=== PATIENT | female | born 1960 | race Hispanic/Latino ===

== ENCOUNTER 2020-02-08 12:10 | Outpatient (CLI) | payer BC ==
--- NOTE | 2020-02-08 13:17 | RAD ---
LEFT TIBIA AND FIBULA: DATE: 02/08/2020 INDICATION: Left leg pain. FINDINGS: No evidence of fracture. No osseous abnormality identified. IMPRESSION: No acute findings. POS: OFF
== END 2020-02-08 12:11 | disposition home or self-care (01) ==
LOC: RAD 12:10
PROVIDERS: ATTEND Physician Assistant
DX: M79.605 Pain in left leg (principal)

== ENCOUNTER 2023-09-28 19:42 | Inpatient (IN) | payer BC ==
[~2023-09-28 19:42] MED LIST: Iopamidol-370 76% 500 ML MDV (1 ML CHARGE) ONE
[2023-09-28 20:43] LABS: #Basophils 0.05 10x3/uL (0.0-0.2); %Basophils 0.8 % (0.0-1.0); %Eosinophils 1.5 % (0.0-10.0); %Lymphocytes 36.8 % (21.0-51.0); %Monocytes 6.9 % (0.0-10.0); %Neutrophils 53.5 % (42.0-75.0); Hematocrit 38.1 % (36.0-47.0); Hemoglobin 12.3 g/dL (12.0-16.0); Mean Corpuscular HGB CONC 32.3 g/dL (32.0-36.0); Mean Corpuscular Hemoglobin 31.1 pg (27.0-31.0); Mean Corpuscular Volume 96.5 fL (78.0-98.0); Mean Platelet Volume 11.5 fL (7.4-10.4); Platelet Count 217 10x3/uL (130-400); RBC Distribution Width 13.1 % (11.5-14.5); Red Blood Cell (RBC) Count 3.95 mill/uL (4.20-5.40)
[2023-09-28] MEDS ORDERED: Atropine Sulfate 1 mg/10 ml Syringe ONE ×2 (20:55→21:17)
[2023-09-28 21:06] LABS: Globulin 3.4 g/dL (2.4-3.5)
[2023-09-28 21:10] LABS: ALT (SGPT) 101 U/L (8-55); AST (SGOT) 116 U/L (5-34); Albumin 3.6 g/dL (3.4-4.8); Alkaline Phosphatase 114 U/L (40-110); Anion Gap 12 mmol/L (10-20); BUN (Urea Nitrogen) 21 mg/dL (9.8-20.1); Bilirubin, Total 0.3 mg/dL (0.2-1.2); Calc. Creatinine Clearance 0 mL/min (70-130); Calcium 9.2 mg/dL (7.8-10.44); Carbon Dioxide 25 mmol/L (23-31); Chloride 110 mmol/L (98-107); Estimated GFR 79; Glucose 107 mg/dL (80-115); Potassium 4.3 mmol/L (3.5-5.1); Sodium 143 mmol/L (136-145)
[2023-09-28 21:12] LABS: Troponin I Less than 0.010 ng/mL (< 0.028)
[2023-09-28] MEDS ORDERED: hydrALAZINE 20 MG/ML VIAL ONE (21:17)
[2023-09-28] MEDS ORDERED: Morphine 4 MG/ML VIAL ONE (21:17)
[2023-09-28 21:34] LABS: Magnesium 2.1 mg/dL (1.6-2.6)
[2023-09-28 21:36] LABS: PTT 26.2 sec (22.9-36.1); Prothrombin Time 12.8 sec (12.0-14.7)
[2023-09-29] MEDS ORDERED: hydrALAZINE 20 MG/ML VIAL SLOW IVP PRN (01:44)
[2023-09-29] MEDS ORDERED: Electrolyte Replacement Protocol 1 EACH FS PRN (02:19)
[2023-09-29 02:21] LABS: #Basophils 0.04 10x3/uL (0.0-0.2); %Basophils 0.6 % (0.0-1.0); %Eosinophils 1.8 % (0.0-10.0); %Lymphocytes 33.3 % (21.0-51.0); %Monocytes 7.3 % (0.0-10.0); %Neutrophils 56.7 % (42.0-75.0); Hematocrit 36.2 % (36.0-47.0); Hemoglobin 11.7 g/dL (12.0-16.0); Mean Corpuscular HGB CONC 32.3 g/dL (32.0-36.0); Mean Corpuscular Hemoglobin 30.8 pg (27.0-31.0); Mean Corpuscular Volume 95.3 fL (78.0-98.0); Mean Platelet Volume 11.4 fL (7.4-10.4); Platelet Count 210 10x3/uL (130-400); RBC Distribution Width 13.2 % (11.5-14.5)
[2023-09-29] MEDS: Atropine Sulfate 1 mg/10 ml Syringe ONE (02:26)
[2023-09-29 02:42] VITALS: BMI 37.7
[2023-09-29 02:42] LABS: Troponin I 0.012 ng/mL (< 0.028)
[2023-09-29] MEDS: Atropine Sulfate 1 mg/10 ml Syringe IVP SCH (02:55)
[2023-09-29 04:30] LABS: Anion Gap 16 mmol/L (10-20); BUN (Urea Nitrogen) 19 mg/dL (9.8-20.1); Calc. Creatinine Clearance 110 mL/min (70-130); Calcium 8.9 mg/dL (7.8-10.44); Carbon Dioxide 19 mmol/L (23-31); Chloride 112 mmol/L (98-107); Estimated GFR 89; Glucose 106 mg/dL (80-115); Magnesium 2.1 mg/dL (1.6-2.6); Potassium 3.8 mmol/L (3.5-5.1); Sodium 143 mmol/L (136-145)
[2023-09-29] MEDS: DOBUTamine 500 mg/250 ml 250 ML IVPB SCH (04:51)
[2023-09-29] MEDS: Ondansetron PF 4 MG/2 ML Vial IVP PRN (05:41)
[2023-09-29 08:13] LABS: Troponin I Less than 0.010 ng/mL (< 0.028)
[2023-09-29 08:28] LABS: HBCM Index 0.07 S/CO (0-0.79); HBsAg Index 0.27 S/CO (0-0.99); Hep A IgM AB NONREACTIVE (NonReactive); Hep A IgM S/CO 0.25 S/CO (0-0.79); Hep B Surf Ag NONREACTIVE S/CO (NonReactive); Hep C IgG Ab NONREACTIVE S/CO (NonReactive); Hepatitis B Core IgM Abs NONREACTIVE S/CO (NonReactive)
[2023-09-29 08:53] LABS: ALT (SGPT) 81 U/L (8-55); AST (SGOT) 61 U/L (5-34); Albumin 3.6 g/dL (3.4-4.8); Alkaline Phosphatase 101 U/L (40-110); Bilirubin, Direct 0.2 mg/dL (0.1-0.3); Bilirubin, Total 0.6 mg/dL (0.2-1.2); Protein, Total 6.5 g/dL (5.8-8.1)
[2023-09-29 08:59] LABS: Acetaminophen Less than 10 mcg/mL (10.0-30.0); Alcohol Less than 10.0 mg/dL (Less than 10); Salicylate Less than 8.0 mg/dL (15.0-30.0)
[2023-09-29] MEDS ORDERED: NIFEdipine XL 60 MG ER.TAB PO SCH (09:00)
[2023-09-29] MEDS: Lisinopril 20 MG TAB PO SCH (09:45)
[2023-09-29] MEDS: Famotidine/PF 20 mg/2ml Vial SLOW IVP SCH (09:46)
[2023-09-29] MEDS ORDERED: CEFAZOLIN 1 GM VIAL ONE (12:41)
[2023-09-29] MEDS ORDERED: Gentamicin 80 MG/2 ML VIAL ONE (12:41)
[2023-09-29] MEDS ORDERED: CEFAZOLIN 2 GM VIAL ONE (12:41)
[2023-09-29] MEDS: ALPRAZolam 0.25 MG TAB PO SCH (12:55)
[2023-09-29] MEDS ORDERED: Midazolam HCl 2 mg/2 ml Vial ONE (13:51)
[2023-09-29] MEDS: Acetaminophen 325 MG TAB PO PRN (17:39)
[2023-09-30 04:16] LABS: #Basophils Less than 0.03 10x3/uL (0.0-0.2); %Basophils 0.3 % (0.0-1.0); %Eosinophils 1.3 % (0.0-10.0); %Lymphocytes 23.5 % (21.0-51.0); %Monocytes 9.2 % (0.0-10.0); %Neutrophils 65.5 % (42.0-75.0); Hematocrit 35.5 % (36.0-47.0); Hemoglobin 11.5 g/dL (12.0-16.0); Mean Corpuscular HGB CONC 32.4 g/dL (32.0-36.0); Mean Corpuscular Hemoglobin 30.8 pg (27.0-31.0); Mean Corpuscular Volume 95.2 fL (78.0-98.0); Mean Platelet Volume 11.5 fL (7.4-10.4); Platelet Count 185 10x3/uL (130-400); RBC Distribution Width 13.2 % (11.5-14.5); Red Blood Cell (RBC) Count 3.73 mill/uL (4.20-5.40)
[2023-09-30 04:52] LABS: ALT (SGPT) 51 U/L (8-55); AST (SGOT) 33 U/L (5-34); Albumin 3.1 g/dL (3.4-4.8); Alkaline Phosphatase 81 U/L (40-110); Anion Gap 14 mmol/L (10-20); BUN (Urea Nitrogen) 15 mg/dL (9.8-20.1); Bilirubin, Total 0.9 mg/dL (0.2-1.2); Calc. Creatinine Clearance 110 mL/min (70-130); Calcium 8.4 mg/dL (7.8-10.44); Carbon Dioxide 21 mmol/L (23-31); Chloride 110 mmol/L (98-107); Estimated GFR 89; Globulin 2.9 g/dL (2.4-3.5); Glucose 92 mg/dL (80-115); Potassium 3.7 mmol/L (3.5-5.1); Sodium 141 mmol/L (136-145)
[2023-09-30] MEDS: Magnesium 2 GM/50 ML(in water) 2 GM in Premix 1 BAG IVPB SCH (08:38)
[2023-09-30 11:40] VITALS: BP 122/61
[2023-09-30 12:13] VITALS: TEMP 97.3
== END 2023-09-30 12:30 | disposition home or self-care (01) | DRG 244 ==
LOC: ERS 19:42 → IMCU/EMU 09-29 01:16
PROVIDERS: ADMIT Internal Medicine; ATTEND Internal Medicine
PROC: 0JH606Z Insertion of Pacemaker, Dual Chamber into Chest Subcutaneous Tissue and Fascia, Open Approach (ICD-10-PCS; principal; 2023-09-29)
PROC: 02H63JZ Insertion of Pacemaker Lead into Right Atrium, Percutaneous Approach (ICD-10-PCS; 2023-09-29)
PROC: 02HK3JZ Insertion of Pacemaker Lead into Right Ventricle, Percutaneous Approach (ICD-10-PCS; 2023-09-29)
DX: I44.1 Atrioventricular block, second degree (principal); R74.01 Elevation of levels of liver transaminase levels; I10 Essential (primary) hypertension; R91.8 Other nonspecific abnormal finding of lung field; E66.01 Morbid (severe) obesity due to excess calories; Z90.49 Acquired absence of other specified parts of digestive tract; Z98.891 History of uterine scar from previous surgery; Z68.37 Body mass index [BMI] 37.0-37.9, adult
CPT/HCPCS: 33208; 36415; 71045; 71275; 74174; 76705; 80048; 80053; 80074; 80076; 80307; 83735; 83880; 84443; 84484; 85025; 85610; 85730; 93005; 93010; 93306; 93798; 99152; 99153; C1785; C1898; J0360; J0461; J0690; J1250; J1580; J2250; J2270; J2405; J3475; Q9967; S0028

== ENCOUNTER 2023-12-14 15:45 | Outpatient (CLI) | payer BC | END 2023-12-14 15:46 | disposition home or self-care (01) | LOC: BICMAMMO 15:45 | PROVIDERS: ATTEND Family Medicine | DX: Z12.31 Encounter for screening mammogram for malignant neoplasm of breast (principal); N63.15 Unspecified lump in the right breast, overlapping quadrants | CPT/HCPCS: 77063; 77067 ==

== ENCOUNTER 2024-12-19 14:35 | Outpatient (CLI) | payer BC | END 2024-12-19 14:36 | disposition home or self-care (01) | LOC: BICMAMMO 14:35 | PROVIDERS: ATTEND Family Medicine | DX: Z12.31 Encounter for screening mammogram for malignant neoplasm of breast (principal) | CPT/HCPCS: 77063; 77067 ==